=== PATIENT | female | born 1960 | race Caucasian/White ===

== ENCOUNTER 2016-12-04 06:02 | Observation (INO) | payer OTHER ==
[2016-11-21 10:39] VITALS: BMI 61.0
--- NOTE | 2016-11-21 11:20 | PAT Medication Instructions ---
Service Date Nov 21, 2016. Current Home Medication List Ascorbic Acid (Vitamin C), 1 TAB PO QAM Aspirin (Aspirin Ec), 81 MG PO QAM Ferrous Sulfate (Kp Ferrous Sulfate), 1 TAB PO QAM Flecainide (Tambocor), 50 MG PO BID Levothyroxine Sodium (Levothyroxine Sodium), 1 TAB PO QAM Oxygen (Oxygen), 2.5 LITERS NA HS [Vitamin B12], 1 DOSE IM 1ST SAT OF MONTH Medication Instructions For Your Scheduled Surgery [Vitamin B12], 1 DOSE IM 1ST SAT OF MONTH (continue as directed) - Hold the following medications the morning of surgery: Ferrous Sulfate (Kp Ferrous Sulfate), 1 TAB PO QAM Ascorbic Acid (Vitamin C), 1 TAB PO QAM - Take the following medications the morning of surgery with a sip of water: Levothyroxine Sodium (Levothyroxine Sodium), 1 TAB PO QAM Aspirin (Aspirin Ec), 81 MG PO QAM (per Dr Salazar instructions) Flecainide (Tambocor), 50 MG PO BID (per Dr Salazar instructions) - Take the following medications as scheduled the night before surgery: Oxygen (Oxygen), 2.5 LITERS NA HS If you have any questions please call us at [phone] (Meaghan Marshall PA-C) or [phone] or [phone]
[2016-11-21 11:44] LABS: BASO % 0.1 %; BASO ABS # 0.01 K/uL (0-0.2); COMPLETE YES; EOS % 2.8 %; HEMATOCRIT 44.5 % (37-47); IG% 0.2 %; LYMPH % 18.3 %; MEAN CELL VOLUME 85.2 fL (80-100); MEAN CORPUSCULAR HEMOGLOBIN 26.4 pg (25-34); MEAN PLATELET VOLUME 11.7 fL (7.4-10.4); MONO % 6.2 %; NEUT % 72.4 %; PLATELET COUNT 204 K/uL (130-400); RED BLOOD COUNT 5.22 M/uL (4.2-5.4); WHITE BLOOD COUNT 8.19 K/uL (4.8-10.8)
[2016-11-21 12:33] LABS: BUN/CREATININE RATIO 18.7 (10-20); CALCIUM 8.8 mg/dl (8.5-10.1); CREATININE 0.67 mg/dl (0.60-1.20)
[~2016-12-04] VITALS: Ht 167.6 cm; Wt 172.1 kg
[2016-12-04] VITALS (10 sets, daily range): BP systolic 131–155; BP diastolic 74–83; PULSE 51–80; TEMP 36.6–37.1; O2SAT 91–95; Ht 167.6 cm; Wt 172.1 kg
[~2016-12-04 06:02] MED LIST: ASCA500 PO; ASPI81TA28 PO; FERR1TAB13 PO; FLEC50TA20 PO; LACTATED RINGER'S 1000ML 1,000 ML IV SCH; LEVO50TA6 PO; OXGN; PROPOFOL IV EMULSION 10 MG/ML 100 ML VIAL IV ONE; VITAMIN B12 IM
[2016-12-04] MEDS ORDERED: PROPOFOL IV EMULSION 10 MG/ML 20 ML VIAL IV ONE (07:53)
[2016-12-04] MEDS ORDERED: SUCCINYLCHOLINE CHLORIDE 20 MG/ML 10 ML VIAL IV ONE (07:53)
[2016-12-04] MEDS ORDERED: LIDOCAINE HCL 2% 2 ML VIAL (20MG/ML) ONE (07:53)
[2016-12-04] MEDS ORDERED: MIDAZOLAM HCL 1 MG/ML 2ML VIAL ONE (07:53)
[2016-12-04] MEDS ORDERED: FENTANYL CITRATE INJ 50 MCG/1 ML 2 ML VIAL ONE (07:54)
--- NOTE | 2016-12-04 08:46 | HISTORY & PHYSICAL EXAMINATION ---
DATE OF ADMISSION: 12/04/2016 HISTORY OF PRESENT ILLNESS: This is a 56-year-old female who was found to have atrial flutter with RVR back in March 2014, initially started on atenolol and had been doing well until August of 2016 where she had a stressful month as her sister and ended up back in atrial flutter with rapid ventricular response. She was started on flecainide along with atenolol, but due to profound sinus bradycardia, atenolol was stopped and she is being feeling a little less fatigued. PAST MEDICAL HISTORY: Paroxysmal atrial flutter, morbid obesity, hypothyroidism, and obstructive sleep apnea. CURRENT MEDICATIONS: Nystatin, flecainide 50 mg twice a day, zinc oxide, ferrous sulfate, vitamin C, vitamin B12, Synthroid, and aspirin. PAST SURGICAL HISTORY: She had a heart catheterization in 2010 and it did not show any significant coronary artery disease. She had appendicitis, cholecystitis, , hysterectomy and gastric bypass. ALLERGIES: No known drug allergies. FAMILY HISTORY: Mother had an MO. Sister had a MO, hypertension, diabetes, heart failure, ischemic cardiomyopathy. She has . SOCIAL HISTORY: Lifelong nonsmoker, no alcohol. REVIEW OF SYSTEMS: All other 10 point review of systems reviewed and is essentially negative at this time. See HPI for pertinent positives. PHYSICAL EXAMINATION: VITAL SIGNS: Blood pressure 130s/70s, heart rate 50s, respirations 12. GENERAL: She is awake, alert and oriented x3, in no acute distress. HEENT: Normocephalic, atraumatic. Extraocular motions are intact. Sclerae is nonicteric. Mucous membranes are moist. NECK: Supple, no carotid bruits appreciated. No JVD, Carotid upstrokes normal. CARDIOVASCULAR: Normal S1, S2, regular rate, bradycardia. No murmur. Pulses carotid, radial and posterior tibial are intact. Trace bilateral lower extremity edema. PULMONARY: Clear to auscultation bilaterally. No wheezes, rales or rhonchi. ABDOMEN: Positive bowel sounds, soft, nontender, and obese. NEUROLOGIC: Grossly intact. SKIN: Grossly intact. RESULTS: EKGs 09/20/2016, sinus bradycardia at 52 beats per minute, QRS 90 milliseconds; 08/20/2016, sinus bradycardia at 44 beats per minute, QRS 90 milliseconds; 08/06/2016, atrial flutter 127 beats per minute, QRS 74 milliseconds; 08/06/2016, possibly more in atrial fib 86 beats per minute. Holter monitor in August 2016, predominant rhythm was sinus rhythm with a tendency towards sinus bradycardia with the average heart rate being 52 beats per minute, slowest heart rate 40 beats per minute during sleeping hours and the fastest heart rate 103 beats per minute. There was no AFib and no pauses. She did have some occasional PACs. PVCs are rare. Echocardiogram from 08/23/2016, ejection fraction is preserved at 60%, grade 1 diastolic dysfunction, no significant valvular pathology and normal cardiac chamber sizes. Nuclear stress test in 2013, no ischemia, normal EF. Laboratory studies from 09/23/2016: BMP: Sodium 143, potassium 3.3, chloride 105, carbon dioxide 27, BUN 14, creatinine 0.6, glucose 104. CBC: WBC is 6.97, hemoglobin 12.6, hematocrit 39.7, platelets 192. IMPRESSION: 1. Paroxysmal atrial flutter with rapid ventricular response initially found in March 2014 and did okay until August 2016, started on flecainide, CHADS2-VASc score is 1 for female. 2. Sinus bradycardia. 3. Morbid obesity. 4. Hypothyroidism. PLAN: Recommend flutter ablation, so we can safely continue flecainide without any AV cruz blockers to avoid any 1:1 AV conduction of the flutter while on the flecainide since she has had a few possible AFib episodes as well. Discussed the procedure with the patient which include but not limited to sudden cardiac , cardiac arrhythmias, cerebrovascular accident, myocardial infarction, injury to the blood vessels, chamber of the heart, valve, rhythm or [place] of electrical system where she would need a permanent pacemaker, bleeding or infection. The patient understood these risks and agreed to go to the procedure as planned and consent was obtained. The patient should hold her flecainide the morning and the night before the procedure. VALERIE
[2016-12-04] MEDS ORDERED: HEPARIN SOD (PORCINE) 1000 UNIT/ML 10 ML VIAL ONE (09:20)
[2016-12-04] MEDS ORDERED: ONDANSETRON INJ 2 MG/ML 2 ML VIAL ONE (09:56)
[2016-12-04] MEDS ORDERED: EpHEDrine SULFATE 50MG/5ML SYR ONE (09:56)
[2016-12-04] MEDS ORDERED: NEOSTIGMINE METHYLSULFATE 5 MG/5 ML SYR ONE (09:56)
[2016-12-04] MEDS ORDERED: PHENYLEPHRINE 100MCG/ML 5ML SYR ONE (09:56)
[2016-12-04] MEDS ORDERED: GLYCOPYRROLATE INJ 0.2 MG/ML VIAL ONE (09:56)
[2016-12-04] MEDS ORDERED: LARYING-O-JET KIT (LTA) EXT ONE ×2 (09:57)
--- NOTE | 2016-12-04 10:53 | [facility] Post Operative Brief Note ---
Immediate Operative Summary Operative Date December 04, 2016. Pre-Operative Diagnosis paroxsymal atrial flutter Post-Operative Diagnosis same with bidirectional cavo-tricuspid isthmus Procedure(s) Performed EPS, 3d mapping of the his bundle,cti and c/s os; radiofrequency ablation of cavotricuspid isthmus Surgeon carl rose Business Attorney Surgeon(s) none Estimated Blood Loss <5cc Findings see official report Fluids (cc crystalloids) 1 liter Specimens none Drains none Anesthesia general anesthesia Complication(s) None Disposition PCU
--- NOTE | 2016-12-04 10:56 | Discharge Instructions ---
Discharge Instructions Date of Service December 04, 2016. Admission Reason for Admission: *W/Ablation Eps 3D, Atrial Flutter Discharge Discharge Diagnosis / Problem: paroxsymal atrial flutter Discharge Goals Goal(s): Improve function Activity Recommendations Activity Limitations: as noted below Lifting Limitations: no more than 10 pounds (no heavy lifiting and squating for 1 week) Exercise/Sports Limitations: as tolerated May Resume Sexual Activity: after one week Shower/Bathe: tomorrow Driving or Machine Use: resume 1 day after discharge . Instructions / Follow-Up Instructions / Follow-Up ACTIVITY RECOMMENDATIONS: It is common to feel weak and fatigue for a few days. * Do not drive or operate any motorized equipment for the next 1 day. * Limit stair usage (2 or 3 trips a day only) for the next three days. * Do not lift anything heavier than 10 pounds for the next 7 days. * Do not engage in vigorous exercise or any sports for the next five days. * You may shower the day after your procedure, but do not immerse the area for three days. Cleanse the site gently with soap and water. SPECIAL CARE INSTRUCTIONS: * You may replace the pressure dressing or band-aid the morning after the procedure. * After your procedure, it is normal to have a small bruise or small lump at the site. Examine your site daily for any change in the bruise or lump, redness, swelling, drainage or numbness. Notify your doctor if any change. BLEEDING: * If there is a small amount of bleeding at the site, lie down and apply firm pressure with a clean cloth for ten minutes. When the bleeding stops, lie quietly keeping the procedure limb straight for six hours. Notify your doctor as soon as possible. * If the bleeding does not stop after ten minutes or if there is a large amount of bleeding or spurting, call 911 immediately. Continue to lie down and hold firm pressure until help arrives. SKIN IRRITATION: * You may experience some redness and/or swelling in the area where radiation was administered. If any skin irritation occurs, please contact your family physician. FOLLOW UP VISIT: Keep any scheduled doctor appointments. Current Hospital Diet Patient's current hospital diet: AHA Diet (Heart Healthy) Discharge Diet Recommended Diet: AHA Diet (Heart Healthy) Procedures Procedures Performed: EPS, 3d mapping of the his bundle,cti and c/s os; radiofrequency ablation of cavotricuspid isthmus Pending Studies Studies pending at discharge: no Medical Emergencies . Who to Call and When: Medical Emergencies: If at any time you feel your situation is an emergency, please call 911 immediately. . Non-Emergent Contact Non-Emergency issues call your: Line Erector . . "Provider Documentation" section prepared by Cynthia Salazar. . VTE Core Measure Inpt VTE Proph given/why not?: SCD's
[2016-12-04] MEDS ORDERED: ACETAMINOPHEN 325 MG TAB PO PRN (11:00)
--- NOTE | 2016-12-04 11:03 | Discharge Summary ---
Discharge Summary Date of Service December 04, 2016. Discharge Summary Admission Date: 12/03/2016 Discharge Date: December 05, 2016 Discharge Disposition: Home Principal Diagnosis: Paroxysmal atrial flutter Secondary Diagnoses/Problems: hypothyroidism morbid obesity LISSETT Procedures: EPS, 3d mapping of the his bundle, cavo-tricuspid isthmus, c/s os and ivc-ra junction; radiofrequency ablation of cavo-tricuspid isthmus Medication Reconciliation Continued Medications: Ascorbic Acid (Vitamin C) 500 Mg Tab 1 TAB PO QAM Aspirin (Aspirin Ec) 81 Mg Tab 81 MG PO QAM Ferrous Sulfate (Kp Ferrous Sulfate) 325 Mg Tab 1 TAB PO QAM, TAB 3 Refills Levothyroxine Sodium (Levothyroxine Sodium) 50 Mcg Tab 1 TAB PO QAM, TAB 3 Refills Oxygen (Oxygen) Gas 2.5 LITERS NA HS [Vitamin B12] () 1 DOSE IM 1ST SAT OF MONTH Discontinued Medications: Flecainide (Tambocor) 50 Mg Tab 50 MG PO BID, TAB Admission Information Physical Exam (per Admitting): aaox3, NAD supple, no JVD nrl S1/S2, no murmur cta b/l obesity no LE edema b/l no focal deficits Hospital Course Pt admitted for elective atrial flutter ablation. Underwent procedure without any complications under general anesthesia. Monitored overnight and discharged home the following day. Total time spent on discharge = This includes examination of the patient, discharge planning, medication reconciliation, and communication with other providers. Discharge Instructions ACTIVITY RECOMMENDATIONS: It is common to feel weak and fatigue for a few days. * Do not drive or operate any motorized equipment for the next 1 day. * Limit stair usage (2 or 3 trips a day only) for the next three days. * Do not lift anything heavier than 10 pounds for the next 7 days. * Do not engage in vigorous exercise or any sports for the next five days. * You may shower the day after your procedure, but do not immerse the area for three days. Cleanse the site gently with soap and water. SPECIAL CARE INSTRUCTIONS: * You may replace the pressure dressing or band-aid the morning after the procedure. * After your procedure, it is normal to have a small bruise or small lump at the site. Examine your site daily for any change in the bruise or lump, redness, swelling, drainage or numbness. Notify your doctor if any change. BLEEDING: * If there is a small amount of bleeding at the site, lie down and apply firm pressure with a clean cloth for ten minutes. When the bleeding stops, lie quietly keeping the procedure limb straight for six hours. Notify your doctor as soon as possible. * If the bleeding does not stop after ten minutes or if there is a large amount of bleeding or spurting, call 911 immediately. Continue to lie down and hold firm pressure until help arrives. SKIN IRRITATION: * You may experience some redness and/or swelling in the area where radiation was administered. If any skin irritation occurs, please contact your family physician. FOLLOW UP VISIT: Keep any scheduled doctor appointments.
[2016-12-04] MEDS ORDERED: IV FLUIDS COMPLETED PRN (11:45)
[2016-12-04] MEDS ORDERED: ATROPINE SULFATE 0.1 MG/ML 5ML SYR IV PRN (12:45)
[2016-12-04] MEDS ORDERED: EpHEDrine SULFATE INJ 50 MG/ML AMP IV PRN (12:45)
--- NOTE | 2016-12-04 12:45 | Anesthesiology Progress Note ---
Anesthesia Post Op Note Date & Time December 04, 2016 at 12:45 Vital Signs Pain Intensity: 0.0 Vital Signs Past 12 Hours Date Time Temp Pulse Resp B/P Pulse Ox O2 Delivery O2 Flow Rate FiO2 12/04/16 12:30 36.8 58 18 141/79 94 Room Air 12/04/16 12:00 53 16 142/85 99 Nasal Cannula 4 12/04/16 11:45 52 16 147/85 99 Nasal Cannula 6 12/04/16 11:35 50 16 144/77 99 Nasal Cannula 6 12/04/16 11:25 51 18 129/74 98 Mask 6 12/04/16 11:15 60 18 140/81 98 Mask 8 12/04/16 06:27 36.6 58 18 155/82 95 Room Air Notes Mental Status: alert / awake / arousable, participated in evaluation Pt Amnestic to Procedure: Yes Nausea / Vomiting: adequately controlled Pain: adequately controlled Airway Patency, RR, SpO2: stable & adequate BP & HR: stable & adequate Hydration State: stable & adequate Anesthetic Complications: no major complications apparent
--- NOTE | 2016-12-04 13:01 | OPERATIVE REPORT ---
DATE OF OPERATION: 12/04/2016 PREOPERATIVE DIAGNOSIS: Paroxysmal atrial flutter. POSTOPERATIVE DIAGNOSIS: Same in addition to bidirectional block over the cavotricuspid isthmus. PROCEDURE: Electrophysiology study, 3D mapping of the His bundle, coronary sinus os, cavotricuspid isthmus and the IVC-RA junction, radiofrequency ablation of the cavotricuspid isthmus. SURGEON: Dr. Cynthia Salazar. DESKTOP PUBLISHER: None. ANESTHESIA: General anesthesia was given via anesthesiology. Please refer to their notes for complete details. COMPLICATIONS: None. CONDITION: Stable. SPECIMENS: None. FINDINGS: None. DRAINS: None. BLOOD LOSS: Less than 5 mL URINE OUTPUT: Not applicable. FINDINGS: See below. INDICATIONS: This is a 56-year-old female with a past medical history for hypothyroidism, obstructive sleep apnea, on home oxygen at nighttime, not on any CPAP, sinus bradycardia, morbid obesity, paroxysmal atrial flutter where she was started on flecainide and atenolol, but due to her sinus bradycardia, has been having symptomatic bradycardia from the medications. So she was recommended a flutter ablation with hope of being able to stop the medicines. CONSENT: Consent was obtained prior to the patient going into the electrophysiology lab. The patient was explained the risks, benefits and alternatives to the procedure. Risks include but not limited to sudden cardiac , cardiac arrhythmias, cerebrovascular accident, myocardial infarction, injury to the blood vessels, chamber of the heart, [place] electrical system where she would need a permanent pacemaker, bleeding, infection. The patient understood these risks and agreed to the procedure as planned. Informed consent was obtained. DESCRIPTION OF THE PROCEDURE: The patient was brought into the electrophysiology lab in a fasting state. She was connected to continuous monitoring engineer. A timeout was performed to ensure patient identity and procedure correctly. The patient was prepped and draped to bilateral groins in normal surgical standard fashion. General anesthesia was given throughout the case for the patient's comfort level via anesthesia. [place] precautions were maintained throughout the procedure. 10 mL of 1% lidocaine were given in the bilateral groins for local anesthesia. Using the modified Seldinger technique, venous access was obtained in the following manner. The left femoral vein had a 7-Indonesian sheath, followed by a decapolar coronary sinus DF curve catheter positioned out into the coronary sinus. An 8-Indonesian sheath, followed by a 20 pole Halo catheter positioned around the right atrium. The right femoral vein initially had an 8-Indonesian short sheath that was eventually swapped out for an SR0, followed then by a Intrallect ThermoCool 4 mm DF curve ablation catheter. An electrophysiology study was performed with the following findings: AZ interval 160 milliseconds, QRS 92 milliseconds, QT 380 milliseconds, sinus cycle length 1158 milliseconds, AH 70 milliseconds, HV 52 milliseconds, AV Wenckebach 470 milliseconds. The atrial ERP was 600/310 and 500/260. The AV node ERP at the [address] was less than or equal to the atrial, and at the [address] train, it was 500/320. Measuring the distance before ablation across the cavotricuspid isthmus line with coronary sinus proximal pacing to the Halo distal was 104 milliseconds. Since the patient was in sinus rhythm, we did an empiric ablation line over the cavotricuspid isthmus. With the ablation catheter, we initially 3D mapped the His bundle region, as well as the coronary sinus os and then then 3D mapping from the tricuspid valve down across the cavotricuspid isthmus to the RA-IVC junction. We then positioned the ablation catheter. When the ablation catheter was positioned down the His bundle, we did do an AH and HV measurements. Then, we positioned the ablation catheter along the cavotricuspid isthmus, starting at the tricuspid valve, and gave a series of radiofrequency ablations 1 minute in duration each all the way down to the IVC junction. At 40 black, when we did get close to the IVC junction, we lowered the wattage to 35. There still was not block, but it seemed that when you are going from the valve dragging back, there was a ridge that we had to connect. After connecting that ridge, we had bidirectional block and we started our 30-minute post-ablation waiting period. During the post-ablation waiting period, we did another electrophysiology study with the following findings: AZ interval 128 milliseconds, QRS 96 milliseconds, QT 406 milliseconds, sinus cycle length 1006 milliseconds, the AH interval 66 milliseconds, HV 50 milliseconds, AV Wenckebach 420 milliseconds, AV node ERP was 600/360 and 500/360, the atrial ERP was 600/350 and 500/220, the right ventricular ERP was 600/310, 400/330, with coronary sinus proximal pacing measuring to the lateral side of our line on the distal Halo, we had 178 milliseconds. When we paced from the distal Halo lateral to our line to the coronary sinus proximal, it was 180 milliseconds, confirming that there was still bidirectional block at a 30-minute wait period. It was at this juncture that the catheters were then pulled from the body and the sheaths were pulled using manual compression to restore hemostasis. The patient was extubated and was doing well. IMPRESSION: 1. Successful bidirectional block across the cavotricuspid isthmus after radiofrequency cavotricuspid isthmus empiric ablation. 2. Normal atrioventricular cruz function. PLAN: Monitor patient post-ablation overnight. EKG. We will stop her flecainide and her atenolol and see how she does. Hopefully, she will not have any fibrillation where she would need to go back on flecainide due to her sinus bradycardia. If she does, then we will address it at that juncture. No heavy lifting or squatting for 1 week's time and she will follow up in my [place] office in 1 month. I attest to the content of the Intraoperative Record and any orders documented therein. Any exceptions are noted below. VALERIE
[2016-12-04] MEDS ORDERED: PNEUMOCOCCAL POLYSACCHARIDES 25 MCG/0.5 ML VIAL/SYR IM. ONE (15:30)
[2016-12-04] MEDS ORDERED: PNEUMOCOCCAL ADMINISTRATION CHARGE ONE (15:30)
[2016-12-05 00:20] VITALS: BP 145/86; PULSE 76; TEMP 37; O2SAT 95
[2016-12-05 04:38] VITALS: BP 141/79; PULSE 68; TEMP 36.8; O2SAT 92
[2016-12-05] MEDS ORDERED: LEVOTHYROXINE 50 MCG TAB PO SCH (06:00)
[2016-12-05 07:49] VITALS: BP 122/64; PULSE 55; TEMP 36.8; O2SAT 93
[2016-12-05] MEDS ORDERED: ASCORBIC ACID 500 MG TAB PO SCH (09:00)
[2016-12-05] MEDS ORDERED: FERROUS SULFATE 325 MG TAB PO SCH (09:00)
[2016-12-05] MEDS ORDERED: ASPIRIN 81 MG ECTAB PO SCH (09:00)
--- NOTE | 2016-12-05 10:38 | Anesthesiology Progress Note ---
Anesthesia Post Op Note Date & Time December 05, 2016 at 10:38 Vital Signs Pain Intensity: 0.0 Vital Signs Past 12 Hours Date Time Temp Pulse Resp B/P Pulse Ox O2 Delivery O2 Flow Rate FiO2 12/05/16 08:00 Room Air 12/05/16 07:49 36.8 55 18 122/64 93 Room Air 12/05/16 04:38 36.8 68 16 141/79 92 Room Air 12/05/16 04:00 Room Air 12/05/16 00:20 37.0 76 22 145/86 95 Room Air 12/05/16 00:01 Room Air Notes Mental Status: alert / awake / arousable, participated in evaluation Pt Amnestic to Procedure: Yes Nausea / Vomiting: adequately controlled Pain: adequately controlled Airway Patency, RR, SpO2: stable & adequate BP & HR: stable & adequate Hydration State: stable & adequate Anesthetic Complications: no major complications apparent
[2016-12-05 11:01] VITALS: BP 122/64; PULSE 55; TEMP 36.8; O2SAT 93
--- NOTE | 2016-12-05 16:57 | Cardiology Follow-Up ---
Subjective Subjective Date of Service: December 05, 2016. Pt evaluation today including: conversation w/ patient, physical exam, chart review, review of studies Pain: none Voiding: no voiding problems Review of Systems Constitutional: No weakness Respiratory: No dyspnea on exertion, No shortness of breath Cardiac: No chest pain, No edema, No palpitations Abdomen: No diarrhea Endo: No fatigue Objective Vital Signs Last Vital Signs Documentation Date Time Temp Pulse Resp B/P Pulse Ox O2 Delivery O2 Flow Rate FiO2 12/05/16 11:01 36.8 55 18 93 Room Air 12/05/16 07:49 122/64 12/04/16 12:00 4 Physical Exam: General Appearance: WD/WN, no apparent distress Eyes: bilateral eyes EOMI, bilateral eyes PERRL Neck: supple Respiratory/Chest: lungs clear, normal breath sounds Cardiovascular: regular rate, rhythm, no edema, no murmur Abdomen: soft (b/l groins soft no hematoma) Neurologic/Psychiatric: alert, oriented x 3 Skin: warm/dry, no rash Assessment and Plan Impression: 1. p. atrial flutter s/p empiric CTI ablation 2. Sinus bradycardia 3. LISSETT 4. hypothyroidism 5. Morbid obesity Plan: -Ok for discharge home -Stop flecainide and beta kenyon -No heavy lifting or squatting for 1 week -f/u in my office in 1 month Discharge planning: home Medications: Medications Administered Medications (Trade) Dose Ordered Sig/Neil Route Start Time Stop Time Status Last Admin Dose Admin Lactated Ringer's (Lr 1000ml) 1,000 ml @ 15 mls/hr Q24H IV 12/04/16 06:00 12/05/16 05:59 DC 12/04/16 07:00 15 MLS/HR Aspirin (Ecotrin Tab) 81 mg QAM PO 12/05/16 09:00 12/05/16 11:33 DC 12/05/16 07:54 81 MG Levothyroxine Sodium (Synthroid Tab) 50 mcg DAILYBB PO 12/05/16 06:00 12/05/16 11:33 DC 12/05/16 05:46 50 MCG Ferrous Sulfate (Feosol Tab) 325 mg DAILY PO 12/05/16 09:00 12/05/16 11:33 DC 12/05/16 07:55 325 MG Lab Results: Telemetry: SR ECG: SB Last 24 Hours Test 12/05/16 06:59 Bedside Glucose 118 mg/dl
[2016-12-07] MEDS ORDERED: CYANOCOBALAMIN 1000 MCG/ML VIAL IM SCH (09:00)
== END 2016-12-05 11:32 | disposition home or self-care (01) ==
LOC: C.ACU 06:02 → C.2E 10:51
PROVIDERS: ADMIT Internal Medicine; ATTEND Internal Medicine
DX: I48.0 Paroxysmal atrial fibrillation (principal); R00.1 Bradycardia, unspecified; E66.01 Morbid (severe) obesity due to excess calories; E03.9 Hypothyroidism, unspecified; G47.33 Obstructive sleep apnea (adult) (pediatric); Z90.710 Acquired absence of both cervix and uterus; Z98.84 Bariatric surgery status; Z82.49 Family history of ischemic heart disease and other diseases of the circulatory system; Z83.3 Family history of diabetes mellitus; Z79.82 Long term (current) use of aspirin; M19.90 Unspecified osteoarthritis, unspecified site